=== PATIENT | female | born 1990 | race African-American/Black ===

== ENCOUNTER 2022-02-26 13:34 | Emergency (ER) | payer MEDICAID ==
[~2022-02-26] VITALS: Ht 162.6 cm; Wt 132.9 kg
[2022-02-26 14:32] VITALS: BP 143/103
--- NOTE | 2022-02-26 15:00 | NUR ---
C/O DIZZINESS, MID CHEST PAIN ON & OFF , VOMITING BLOOD X 2 DAYS AND C/O COUGH, WEAKNESS X 4 DAYS. SEEN AT [facility] YESTERDAY & HAD FLU TESTED POSITIVE , COVID TESTEd negative. PMH: DENIES
[2022-02-26 15:34] LABS: BASOPHILS % (AUTO) 0.2 % (0.0-2.0); HEMATOCRIT 44.3 % (36-48); HEMOGLOBIN 14.9 g/dL (12.0-16.0); LYMPHOCYTES # (AUTO) 1.2 K/uL (2.5-16.5); LYMPHOCYTES % (AUTO) 20.4 % (20.5-51.1); MEAN CORPUSCULAR HEMOGLOBIN 28 pg (27-31); MEAN CORPUSCULAR HGB CONC 34 g/dL (33-37); MONOCYTES # (AUTO) 0.4 K/uL (0.8-1.0); MONOCYTES % (AUTO) 6.4 % (1.7-9.3); NEUTROPHILS # (AUTO) 4.2 K/uL (1.8-7.7); PLATELET COUNT (AUTO) 374 K/uL (140-450); RED BLOOD CELL COUNT(AUTO) 5.41 MIL/uL (4.20-5.40); RED CELL DISTRIBUTION WIDTH 14.2 % (11.6-13.7); WHITE BLOOD COUNT (AUTO) 5.8 K/uL (4.8-10.8)
[2022-02-26 15:43] LABS: ALBUMIN 3.8 g/dL (3.4-5.0); ANION GAP 16.3 (8-16); CARBON DIOXIDE 24.5 mmol/L (21-32); CREATININE 0.8 mg/dL (0.6-1.3); POTASSIUM 3.8 mmol/L (3.5-5.1); TOTAL BILIRUBIN 0.2 mg/dL (0.0-1.0)
[2022-02-26 16:07] LABS: APPEARANCE,URINE CLEAR (CLEAR); BILIRUBIN,URINE NEGATIVE (NEGATIVE); BLOOD, URINE NEGATIVE (NEGATIVE); COLOR,URINE YELLOW (YELLOW); LEUKOCYTE ESTERASE ,URINE NEGATIVE (NEGATIVE); NITRITE, URINE NEGATIVE (NEGATIVE); PH,URINE 6.5 (5.0-9.0); UGLUCOSE NEGATIVE (NEGATIVE)
[2022-02-26] MEDS ORDERED: KETOROLAC 30 MG/ML VIAL IM ONE (16:35)
[2022-02-26] MEDS ORDERED: ONDANSETRON 4 MG ODT PO ONE (16:35)
[2022-02-26] MEDS ORDERED: METO-485 PO (18:18)
[2022-02-26] MEDS ORDERED: ACET-10509 PO (18:18)
[2022-02-26] MEDS ORDERED: IBUP-2213 PO (18:18)
[2022-02-26 18:30] VITALS: BP 121/74
--- NOTE | 2022-02-26 18:30 | NUR ---
Patient discharged with v/s stable. Written and verbal after care instructions ABOUT FLU AND HYPERTENSION given and explained. Patient alert, oriented and verbalized understanding of instructions. Ambulatory with steady gait. All questions addressed prior to discharge. ID band removed. Patient advised to follow up with PMD. Rx of TYLENOL, IBUPROFEN AND REGLAN given. Patient educated on indication of medication including possible reaction and side effects. Opportunity to ask questions provided and answered.
== END 2022-02-26 18:03 | disposition home or self-care (01) ==
LOC: MED 13:34
DX: J10.1 Influenza due to other identified influenza virus with other respiratory manifestations (principal); R03.0 Elevated blood-pressure reading, without diagnosis of hypertension
CPT/HCPCS: 36415; 71045; 80053; 81003; 81025; 84484; 84703; 85025; 93005; 96372; 99285; J1885; Q0092; Q0162